=== PATIENT | female | born 1990 | race Caucasian/White ===

== ENCOUNTER → 2017-02-01 | Outpatient (CLI) | payer OTHER ==
[2017-02-01 08:24] LABS: MEAN CORPUSCULAR HEMOGLOBIN 29.2 pg (27.0-33.0); MEAN CORPUSCULAR VOLUME 88.7 fl (80.0-96.0); RED CELL DISTRIBUTION WIDTH 12.4 % (11.5-14.5); WHITE BLOOD COUNT 7.3 K/mm3 (4.0-10.0)
[2017-02-01 09:07] LABS: ALBUMIN 3.9 GM/DL (3.2-5.2); ALBUMIN/GLOBULIN RATIO 1.34 (1.00-1.93); ALKALINE PHOSPHATASE 104 U/L (45-117); ALT/SGPT 32 U/L (12-78); ANION GAP 5 MEQ/L (8-16); AST/SGOT 15 U/L (15-37); BILIRUBIN,TOTAL 0.5 MG/DL (0.2-1.0); BLOOD UREA NITROGEN 13 MG/DL (7-18); CALCIUM LEVEL 8.8 MG/DL (8.5-10.1); CARBON DIOXIDE LEVEL 29 MEQ/L (21-32); CHLORIDE LEVEL 105 MEQ/L (98-107); CHOLESTEROL LEVEL 226 MG/DL (<200); CREATININE FOR GFR 0.73 MG/DL (0.55-1.02); GLOMERULAR FILTRATION RATE > 60.0 (>60); GLUCOSE, FASTING 84 MG/DL (70-105); POTASSIUM SERUM 4.4 MEQ/L (3.5-5.1); SODIUM LEVEL 139 MEQ/L (136-145); TOTAL PROTEIN 6.8 GM/DL (6.4-8.2); TRIGLYCERIDES LEVEL 46 MG/DL (<150)
--- NOTE | 2017-02-01 09:38 | ECGEPIP ---
Stationary ECG Study [facility] Test Date: 2017-02-01 Pat Name: CANDIS MCELROY Department: Room: - Gender: F Senior Systems Software Engineer: : [id number] Requested By: Anahi Hernandez Order Number: [id number] Reading MD: Priscilla Cantu Measurements Intervals Parks Rate: 66 P: 20 CO: 156 QRS: 71 QRSD: 90 T: 67 QT: 418 QTc: 439 Interpretive Statements SINUS RHYTHM POSSIBLE SEPTAL T WAVE ABN NO PRIOR MAY BE NORMAL VARIENT Electronically Signed On 02-01-2017 9:38:12 EDT by Priscilla Cantu
== END ==
LOC: M LAB 08:03
PROVIDERS: ATTEND Family Medicine
DX: D64.9 Anemia, unspecified (principal); R53.83 Other fatigue

== ENCOUNTER → 2017-08-10 | Outpatient (CLI) | payer OTHER ==
[2017-08-10 17:45] LABS: BASO % 0.3 % (0.0-1.0); EOS # 0.2 10^3/uL (0.0-0.50); EOS % 1.2 % (0.0-3.0); HEMATOCRIT 35.6 % (36.0-47.0); HEMOGLOBIN 11.7 g/dl (12.0-16.0); IMMATURE GRANULOCYTE % 0.3 % (0-0); LYMPH # 3.4 10^3/uL (1.5-6.5); LYMPH % 26.7 % (24.0-44.0); MEAN CORPUSCULAR HEMOGLOBIN 29.4 pg (27.0-33.0); MEAN CORPUSCULAR HGB CONC 32.9 g/dl (32.0-36.5); MEAN CORPUSCULAR VOLUME 89.4 fl (80.0-96.0); MONO # 0.9 10^3/uL (0.0-0.8); MONO % 6.9 % (0.0-5.0); NEUTROPHILS # 8.3 10^3/uL (1.8-7.7); NEUTROPHILS % 64.6 % (36.0-66.0); PLATELET COUNT, AUTOMATED 285 10^3/uL (150-450); RED BLOOD COUNT 3.98 10^6/uL (4.00-5.40); RED CELL DISTRIBUTION WIDTH 12.9 % (11.5-14.5); WHITE BLOOD COUNT 12.9 10^3/uL (4.0-10.0)
[2017-08-10 23:17] LABS: CHLAMYDIA DNA AMPLIFICATION NEGATIVE (NEGATIVE); GC DNA AMPLIFICATION NEGATIVE (NEGATIVE)
[2017-08-12 10:34] LABS: RUBELLA IgG QUALITATIVE IMMUNE (IMMUNE)
[2017-08-12 10:52] LABS: HBsAg Prenatal NEGATIVE (NEGATIVE)
[2017-08-12 11:03] LABS: HIV 1&2 SCREEN CENTAUR NEGATIVE (NEGATIVE)
[2017-08-12 11:03] LABS: HEPATITIS C VIRUS ABY INDEX 0.1 INDEX (<0.8)
== END ==
LOC: M WUC 14:00
DX: Z34.81 Encounter for supervision of other normal pregnancy, first trimester (principal); Z3A.00 Weeks of gestation of pregnancy not specified
CPT/HCPCS: 86762

== ENCOUNTER → 2017-09-10 | Outpatient (CLI) | payer OTHER | LOC: M RAD 16:32 | DX: Z34.80 Encounter for supervision of other normal pregnancy, unspecified trimester (principal) ==

== ENCOUNTER → 2017-10-05 | Outpatient (CLI) | payer OTHER | LOC: M RAD 16:07 | DX: Z34.82 Encounter for supervision of other normal pregnancy, second trimester (principal); Z3A.23 23 weeks gestation of pregnancy | CPT/HCPCS: 76816 ==

== ENCOUNTER → 2017-11-06 | Outpatient (CLI) | payer OTHER ==
[2017-11-06 13:14] LABS: BASO % 0.2 % (0.0-1.0); EOS # 0.2 10^3/uL (0.0-0.50); EOS % 1.1 % (0.0-3.0); HEMOGLOBIN 11.4 g/dl (12.0-15.5); LYMPH # 1.8 10^3/uL (1.5-6.5); LYMPH % 11.1 % (24.0-44.0); MEAN CORPUSCULAR HEMOGLOBIN 29.3 pg (27.0-33.0); MEAN CORPUSCULAR HGB CONC 32.6 g/dl (32.0-36.5); MONO # 0.9 10^3/uL (0.0-0.8); MONO % 5.9 % (0.0-5.0); NEUTROPHILS # 12.9 10^3/uL (1.8-7.7); NEUTROPHILS % 80.7 % (36.0-66.0); PLATELET COUNT, AUTOMATED 306 10^3/uL (150-450); RED BLOOD COUNT 3.89 10^6/uL (4.00-5.40); RED CELL DISTRIBUTION WIDTH 13.2 % (11.5-14.5)
[2017-11-06 13:43] LABS: GLUCOSE CHALLENGE TEST 1 HOUR 78 MG/DL (LESS THAN 140)
== END ==
LOC: M SMT 08:02
DX: Z34.82 Encounter for supervision of other normal pregnancy, second trimester (principal)
CPT/HCPCS: 82950

== ENCOUNTER → 2018-01-06 | Outpatient (REF) | payer OTHER | LOC: M LAB REF 17:25 | DX: Z34.83 Encounter for supervision of other normal pregnancy, third trimester (principal); Z36.89 Encounter for other specified antenatal screening ==

== ENCOUNTER → 2018-01-11 | Outpatient (CLI) | payer OTHER | LOC: M RAD 16:04 | DX: O26.843 Uterine size-date discrepancy, third trimester (principal); Z3A.37 37 weeks gestation of pregnancy | CPT/HCPCS: 76816 ==

== ENCOUNTER 2018-02-04 21:18 | Inpatient (IN) | payer OTHER ==
[2018-02-04] MEDS ORDERED: OXYTOCIN DRIP 30 UNITS in APPROPRIATE DILUENT 1 EA IV (22:15)
[2018-02-04] MEDS: LR 1,000 ML IV ×2 (22:29)
[2018-02-04 22:31] LABS: HEMATOCRIT 32.8 % (36.0-47.0); HEMOGLOBIN 10.8 g/dl (12.0-15.5); MEAN CORPUSCULAR HEMOGLOBIN 26.7 pg (27.0-33.0); MEAN CORPUSCULAR HGB CONC 32.9 g/dl (32.0-36.5); PLATELET COUNT, AUTOMATED 309 10^3/uL (150-450); RED BLOOD COUNT 4.05 10^6/uL (4.00-5.40); RED CELL DISTRIBUTION WIDTH 13.8 % (11.5-14.5); WHITE BLOOD COUNT 13.2 10^3/uL (4.0-10.0)
[2018-02-04] MEDS: OMEPRAZOLE 20 MG CAP PO (22:50)
[2018-02-04] MEDS: CALCIUM CARBONATE 500 MG CHEW U/D PO (22:50)
[2018-02-05] MEDS ORDERED: FENTANYL 2MCG/ML ROPIVACAINE 0.2% IN 0.9% NACL 200ML IVBAG As Ordered (03:57)
[2018-02-05] MEDS ORDERED: ePHEDrine SULFATE 25 MG/5 ML(5MG/ML) SYRINGE IV (04:05)
[2018-02-05] MEDS ORDERED: EPIDURAL COMMENT XX (04:05)
[2018-02-05] MEDS ORDERED: FENTANYL/ROPIVACAINE/NACL BAG 200 ML EPIDURAL (04:05)
[2018-02-05] MEDS ORDERED: NALOXONE INJ 0.4 MG/1 ML VIAL (J2310) IV (04:05)
[2018-02-05] MEDS ORDERED: EPIDURAL/PCA KEYS XX (04:05)
[2018-02-05] MEDS ORDERED: REFRIGERATOR IV KEYS XX (04:05)
[2018-02-05] MEDS ORDERED: LACTATED RINGER'S 1000 ML IV (04:05)
[2018-02-05] MEDS ORDERED: ONDANSETRON 4MG/2ML VIAL (J2405) IV ×2 (04:05→11:15)
[2018-02-05] MEDS ORDERED: diphenhydrAMINE INJ 50MG/ML VIAL (J1200) IV (04:05)
[2018-02-05] MEDS ORDERED: ePHEDrine SULFATE 25 MG/5 ML(5MG/ML) SYRINGE As Ordered (05:11)
[2018-02-05] MEDS: LR 1,000 ML IV (08:49)
[2018-02-05] MEDS ORDERED: MEASLES,MUMPS,RUBELLA VACCINE INJ (MMR-II) (90707) SC (11:15)
[2018-02-05] MEDS: OXYTOCIN DRIP 30 UNITS in APPROPRIATE DILUENT 1 EA IV (11:15)
[2018-02-05] MEDS ORDERED: DIBUCAINE 1% OINTMENT 30GM TOP (11:15)
[2018-02-05] MEDS ORDERED: METHYLERGONOVINE MALEATE 0.2 MG TAB PO (11:15)
[2018-02-05] MEDS ORDERED: RHOGAM 300 MCG (1500 IU) INJ (J2790) IM (11:15)
[2018-02-05] MEDS ORDERED: DOCUSATE SODIUM 100 MG CAP PO (11:15)
[2018-02-05] MEDS: IBUPROFEN 800 MG TAB PO (15:05)
[2018-02-05] MEDS: ACETAMINOPHEN 500 MG TAB PO (21:16)
[2018-02-06] MEDS: PRENATAL VITAMINS CHEWABLE TABLET PO (08:55)
[2018-02-06] MEDS: ACETAMINOPHEN 500 MG TAB PO ×2 (08:55→19:44)
[2018-02-06] MEDS: IBUPROFEN 800 MG TAB PO (13:58)
[2018-02-07] MEDS: IBUPROFEN 800 MG TAB PO (05:29)
[2018-02-07] MEDS: PRENATAL VITAMINS CHEWABLE TABLET PO (08:14)
== END 2018-02-07 13:20 | disposition home or self-care (01) | DRG 775 ==
LOC: M LDO 21:18 → M LDI 21:54 → M OBS 02-05 14:18
PROVIDERS: Advanced Practice Midwife
PROC: 10E0XZZ Delivery of Products of Conception, External Approach (ICD-10-PCS; principal; 2018-02-05)
PROC: 0HQ9XZZ Repair Perineum Skin, External Approach (ICD-10-PCS; 2018-02-05)
DX: O42.02 Full-term premature rupture of membranes, onset of labor within 24 hours of rupture (principal); O48.0 Post-term pregnancy; Z3A.40 40 weeks gestation of pregnancy; O70.0 First degree perineal laceration during delivery; O77.0 Labor and delivery complicated by meconium in amniotic fluid; Z37.0 Single live birth

== ENCOUNTER 2018-11-24 19:24 | Emergency (ER) | payer OTHER ==
[~2018-11-24] VITALS: Ht 162.6 cm; Wt 76.8 kg
[~2018-11-24 19:24] MED LIST: ACET500T15 PO; ADVI200T PO; RANI15TA PO; TUMS500C PO
[2018-11-24] MEDS ORDERED: ACETAMINOPHEN TAB 650MG DOSE (2X325MG) PO ONE (20:30)
[2018-11-24 21:03] LABS: BASO # 0.1 10^3/uL (0.0-0.2); BASO % 0.5 % (0.0-1.0); EOS # 0.1 10^3/uL (0.0-0.50); EOS % 1.1 % (0.0-3.0); HEMATOCRIT 39.4 % (36.0-47.0); HEMOGLOBIN 12.7 g/dl (12.0-15.5); LYMPH # 3.9 10^3/uL (1.5-4.5); LYMPH % 34.6 % (24.0-44.0); MEAN CORPUSCULAR HEMOGLOBIN 28.4 pg (27.0-33.0); MEAN CORPUSCULAR HGB CONC 32.2 g/dl (32.0-36.5); MEAN CORPUSCULAR VOLUME 88.1 fl (80.0-96.0); MONO # 0.6 10^3/uL (0.0-0.8); MONO % 5.7 % (0.0-5.0); NEUTROPHILS # 6.5 10^3/uL (1.8-7.7); NEUTROPHILS % 57.7 % (36.0-66.0); PLATELET COUNT, AUTOMATED 266 10^3/uL (150-450); RED BLOOD COUNT 4.47 10^6/uL (4.00-5.40); WHITE BLOOD COUNT 11.2 10^3/uL (4.0-10.0)
--- NOTE | 2018-11-24 22:33 | REPVR ---
EXAM: US Pelvis Complete, Transabdominal EXAM DATE/TIME: 11/24/2018 9:38 PM CLINICAL HISTORY: 28 years old, female; Signs and symptoms; Lmp or gestational age (in weeks): Unk; Antepartum complications; Bleeding; ; Patient HX: Recent miscarriage; Additional info: Vaginal bleeding TECHNIQUE: Imaging protocol: Real-time transabdominal pelvic ultrasound with image documentation. Complete exam. COMPARISON: US OBS FOLL UP OR REPEAT EACH GES 01/11/2018 4:19 PM FINDINGS: Uterus/cervix: The uterus measures 10.4 x 5.4 x 6.0 cm and is anteverted. No intrauterine is visualized. The endometrium measures 1.4 cm in thickness without vascularity on color flow imaging. Right adnexa: The right ovary measures 4.6 x 2.0 x 3.2 cm and contains a 1.6 cm corpus luteal cyst. Left adnexa: The left ovary measures 2.6 x 1.7 x 2.5 cm. Free fluid: None. Bladder: Normal. IMPRESSION: No intrauterine or findings suspicious for retained products of conception. Electronically signed by: Ana M Reis On 11/24/2018 22:33:01 PM
[2018-11-24 23:10] LABS: CHLAMYDIA DNA AMPLIFICATION NEGATIVE (NEGATIVE); GC DNA AMPLIFICATION NEGATIVE (NEGATIVE)
[2018-11-24 23:30] VITALS: BP 112/65
== END 2018-11-24 23:31 | disposition home or self-care (01) ==
LOC: M ED 19:24
DX: O20.0 Threatened abortion (principal); Z79.899 Other long term (current) drug therapy

== ENCOUNTER → 2018-11-26 | Outpatient (CLI) | payer OTHER | LOC: M SMT 13:00 | PROVIDERS: ATTEND Specialist | DX: O02.1 Missed abortion (principal); Z3A.00 Weeks of gestation of pregnancy not specified ==

== ENCOUNTER → 2019-03-16 | Outpatient (CLI) | payer OTHER ==
[2019-03-16 14:48] LABS: BASO # 0.1 10^3/uL (0.0-0.2); BASO % 0.5 % (0.0-1.0); EOS # 0.1 10^3/uL (0.0-0.50); EOS % 0.8 % (0.0-3.0); HEMATOCRIT 40.1 % (36.0-47.0); LYMPH # 3.1 10^3/uL (1.5-4.5); MEAN CORPUSCULAR HEMOGLOBIN 29.2 pg (27.0-33.0); MEAN CORPUSCULAR HGB CONC 32.4 g/dl (32.0-36.5); MEAN CORPUSCULAR VOLUME 90.1 fl (80.0-96.0); MONO # 0.6 10^3/uL (0.0-0.8); MONO % 6.2 % (0.0-5.0); NEUTROPHILS # 5.9 10^3/uL (1.8-7.7); NEUTROPHILS % 60.2 % (36.0-66.0); PLATELET COUNT, AUTOMATED 278 10^3/uL (150-450); RED BLOOD COUNT 4.45 10^6/uL (4.00-5.40); WHITE BLOOD COUNT 9.8 10^3/uL (4.0-10.0)
[2019-03-16 16:00] LABS: HEPATITIS C VIRUS ABY INDEX < 0.0 INDEX (<0.8); HIV 1&2 SCREEN CENTAUR NEGATIVE (NEGATIVE); RUBELLA IgG QUALITATIVE IMMUNE (IMMUNE)
[2019-03-16 16:16] LABS: CHLAMYDIA DNA AMPLIFICATION NEGATIVE (NEGATIVE); GC DNA AMPLIFICATION NEGATIVE (NEGATIVE)
== END ==
LOC: M SMT 10:28
PROVIDERS: ATTEND Advanced Practice Midwife
DX: Z34.81 Encounter for supervision of other normal pregnancy, first trimester (principal)

== ENCOUNTER → 2019-05-19 | Outpatient (CLI) | payer OTHER ==
--- NOTE | 2019-05-20 14:14 | REP ---
Clinical: Anatomical evaluation. Comparison: 11/24/2018 . Findings: Examination demonstrates a single live intrauterine in breech presentation. motion is identified by technologist. Placenta is noted posterior and grade I without evidence for placenta previa or abruption. Amniotic fluid volume is normal. Cervix measures 5.7 cm in length and appears closed. No evidence for nuchal cord. Gestational age by LMP 18 weeks 6 days with JOSE EDUARDO 10/14/2019 . Gestational age by current measurements 19 weeks 0 days with JOSE EDUARDO 10/13/2019 . FHR equals 150 beats per minute. BPD 4.3 19 weeks 0 days HC 16.2 cm 19 weeks 0 days AC 13.6 cm 19 weeks 0 days FL 2.9 cm 18 weeks 6 days HL 2.8 cm 19 weeks 1 day HC/AC ratio 1.19 Estimated weight 266 grams (48th percentile). Anatomical assessment demonstrates normal structures including cranium, choroid plexus, cavum, cerebellum/posterior fossa, nose and lips, lungs, diaphragm, stomach, cord insertion/three-vessel cord, kidneys/bladder, spine, and extremities. Limited evaluation of the facial profile and heart/ventricular outflow tracts Impression: Single live intrauterine in breech presentation demonstrating appropriate interval growth. Anatomical limitations as noted above. No gross abnormality. Electronically Signed by Kenneth Tadeo MD 05/20/2019 02:07 P
== END ==
LOC: M RAD 16:58
PROVIDERS: ATTEND Obstetrics & Gynecology
DX: Z34.82 Encounter for supervision of other normal pregnancy, second trimester (principal)

== ENCOUNTER → 2019-06-22 | Outpatient (CLI) | payer OTHER ==
--- NOTE | 2019-06-22 07:46 | REP ---
Clinical: Anatomical evaluation. Comparison: 05/19/2019 . Findings: Examination demonstrates a single live intrauterine in variable presentation. motion is identified by technologist. Placenta is noted posterior and grade zero without evidence for placenta previa or abruption. Amniotic fluid volume is normal. Cervix measures 6.7 cm in length and appears closed. No evidence for nuchal cord. Gestational age by LMP 23 weeks 5 days with JOSE EDUARDO 10/14/2019 . Gestational age by current measurements 23 weeks 4 days with JOSE EDUARDO 10/15/2019 . FHR equals 135 beats per minute. Estimated weight 590 grams ( 35th percentile). Anatomical assessment demonstrates normal structures including cranium, choroid plexus, cavum, cerebellum/posterior fossa, facial features, lungs, four-chamber heart/ventricular outflow tracts, diaphragm, stomach, cord insertion/three-vessel cord, kidneys/bladder, spine, and lower extremities. Impression: Single live intrauterine in variable presentation demonstrating appropriate interval growth. In conjunction with prior examination anatomical assessment is complete and normal. No gross abnormalities are identified. Electronically Signed by Kenneth Tadeo MD 06/22/2019 07:38 A
== END ==
LOC: M RAD 06:15
PROVIDERS: ATTEND Obstetrics & Gynecology
DX: Z36.2 Encounter for other antenatal screening follow-up (principal); Z3A.23 23 weeks gestation of pregnancy

== ENCOUNTER → 2019-07-12 | Outpatient (CLI) | payer OTHER ==
[2019-07-12 13:45] LABS: HEMATOCRIT 37.3 % (36.0-47.0); HEMOGLOBIN 11.7 g/dl (12.0-15.5); MEAN CORPUSCULAR HEMOGLOBIN 29.3 pg (27.0-33.0); MEAN CORPUSCULAR HGB CONC 31.4 g/dl (32.0-36.5); MEAN CORPUSCULAR VOLUME 93.3 fl (80.0-96.0); PLATELET COUNT, AUTOMATED 253 10^3/uL (150-450); WHITE BLOOD COUNT 12.7 10^3/uL (4.0-10.0)
== END ==
LOC: M PLALAB 09:07
PROVIDERS: ATTEND Obstetrics & Gynecology
DX: Z34.82 Encounter for supervision of other normal pregnancy, second trimester (principal)

== ENCOUNTER → 2019-09-20 | Outpatient (REF) | payer OTHER | LOC: M SFHCWAGY 17:03 | PROVIDERS: ATTEND Advanced Practice Midwife | DX: Z34.83 Encounter for supervision of other normal pregnancy, third trimester (principal) ==

== ENCOUNTER 2019-10-15 15:07 | Outpatient (CLI) | payer OTHER ==
[~2019-10-15] VITALS: Ht 162.6 cm; Wt 95.4 kg
[2019-10-15 15:39] VITALS: BP 122/77
[2019-10-15] MEDS ORDERED: PRENTAB9 PO (16:24)
--- NOTE | 2019-10-15 20:32 | IPNPDOC ---
Text Note Date of Service The patient was seen on 10/15/19. NOTE Melita is a 29 year old at 40.1 EGA who presenting to the labor floor complaining of contractions and leaking of fluid that began at 2:00 PM (14:00) this afternoon. She said the leakage was clear, and she did not quite fill a pad. She reports good movement, no large gush of fluid. She says that her contractions started out about 6-8 minutes apart, and are now about 2-3 minutes apart. She does endorse not drinking a lot of fluid over the last day or so. On exam she is a pleasant, gravid female in no acute distress. Vital signs show a temperature of 97.3 F, pulse 87, respiratory rate 16, and blood pressure 122/77. Sterile vaginal exam shows nitrazine negative, no vaginal pooling. 3 cm dilated, 50% effaced -3 station. Monitor shows a heart rate of 120 bpm, moderate variability, accels, no decels. She was given fluids to drink and observed for 3 hours. Contractions spaced out to 8-10 minutes. There was no more leakage of fluid. She was determined to not be in labor, and discharged home. Signs and symptoms of labor were reviewed, precautions were given. The patient and her voiced understanding. VS,Fishbone, I+O VS, Fishbone, I+O Vital Signs Date Time Temp Pulse Resp B/P (MAP) Pulse Ox O2 Delivery O2 Flow Rate FiO2 10/15/19 15:39 97.3 87 16 122/77 (92) GME ATTESTATION GME ATTESTATION My faculty preceptor for this patient encounter was physically present during the encounter and was fully available. All aspects of the patient interview, examination, medical decision making process, and medical care plan development were reviewed and approved by the faculty preceptor. The faculty preceptor is aware and concurs with the plan as stated in the body of this note and will attest to such by his/her cosignature. JOAQUINA PAN D.O. Oct 15, 2019 20:32
== END 2019-10-15 20:35 | disposition home or self-care (01) ==
LOC: M LDO 15:07
PROVIDERS: ATTEND Obstetrics & Gynecology
DX: O26.893 Other specified pregnancy related conditions, third trimester (principal); N89.8 Other specified noninflammatory disorders of vagina; O47.1 False labor at or after 37 completed weeks of gestation; Z3A.40 40 weeks gestation of pregnancy
CPT/HCPCS: 59025; G0378; G0463

== ENCOUNTER 2019-10-18 02:33 | Inpatient (IN) | payer OTHER ==
[2019-10-18] VITALS (10 sets, daily range): BP systolic 121–139; BP diastolic 69–78
[~2019-10-18] VITALS: Ht 162.6 cm; Wt 94.7 kg
[~2019-10-18 02:33] MED LIST changes: +PRENTAB9 PO
[2019-10-18] MEDS ORDERED: LACTATED RINGER'S 1000 ML IV STA (03:00)
[2019-10-18] MEDS ORDERED: LR 1,000 ML IV SCH (03:00)
--- NOTE | 2019-10-18 03:05 | HPEPDOC ---
Obstetrical History & Physical General Date of Admission Oct 18, 2019 at 02:33 Primary Care Physician: ALFRED RODGERS CNM History of Present Illness Patient is a 29-year-old female who is a at 40.4 weeks gestation with an JOSE EDUARDO of 10/14/19 based off of her LMP and consistent with her first trimester ultrasound. She initiated care in her first trimester with [facility]. Her has been uncomplicated. She presents to L&D with complaints of regular painful contractions. She reports active movement. She reports some continuos vaginal discharge and is uncertain if her water is broke. She denies vaginal bleeding. Chief Complaint: Active Labor Information Provided By: Patient Age: 29 : 3 Term: 1 Pre-term: 0 Abortions: 1 Livin Care Care: Good Care Dating Final EDC: Oct 14, 2019 Final EDC by: LMP EGA at Admission: 40.4 Antepartum Course Pre- weight (lbs.): 154 Past Medical History Past Obstetrical History : Past Obstetrical History: Primgravida Gestation: 40.5 Type of Delivery: Spontaneous Vaginal Del. (January 2018) Sex of Infant: Female (weight 7 lbs 11 oz) Complications: No [employer] History: Spontaneous , Abnormal Pap Past Medical History Surgical History: Denies/None Family History Significant Family History: Diabetes Social History Marital Status: Family situation: Spouse/partner home Psychosocial History: No pertinent psych hx * Smoker: non-smoker Alcohol: Denies Drugs: denies Abuse Violence Screening Have you been hit/kicked/slapp: No Have you been sexually assault: No Allergies Coded Allergies: No Known Allergies (Unverified , 11/24/18) Medications Scheduled No.137/Iron/Folic Acd ( Vitamin Tablet) 1 Each Tablet, 1 TAB PO DAILY Physical Examination Physical Examination GENERAL: Alert and oriented times three. BREAST: . ABDOMEN: Gravid and non-tender to touch. FETUS: Is vertex (VTX) by sterile vaginal examination (SVE), fetus is vertex (VTX) by Kermit. HEART RATE: Regular rate and rhythm. LUNGS: Clear to auscultation (CTA). EXTREMITIES: Generalized edema. No clonus. Deep tendon reflexes (DTRs) + 2. Laboratory Data [facility] Laboratory Tests 2 10/18/19 02:42: Serology Scanned Report Hepatitis B Testing Urine Culture: No Growth Pertinent Laboratoy Data Blood Type: A+ RBC Antibody Screen: Negative HIV: Negative Hepatitis B: Negative Hepatitis C: Negative Rapid Plasma Reagin: Nonreactive Rubella: Immune Chlamydia/Gonorrhea: Negative Group B Streptococcus: Negative Vaginal Examination Dilation: 5 cm Effacement: 100% Station: -1 Presentation: Cephalic presentation Position: Vertex (occiput) Assessment Heart Rate (FHR): 130 Variability: Minimal to moderate Decelerations: None Tocometer Contractions: Yes Frequency: regular Assessment/Plan Assessment IUP at 40.4 weeks gestation active labor GBS negative Plan Admit to L&D OOB ad zion. Diet: clears. Group B Streptococcus (GBS) negative. Labs and intravenous (IV) per unit protocol. Anesthesia consult per patient's request. Lactated Ringers (LR): Bolus 800 mL, then at 125 mL/hr. Anticipate cervical change and . C-S as appropriate. ALFRED RODGERS CNM Oct 18, 2019 03:05
[2019-10-18 03:21] LABS: HEMOGLOBIN 13.5 g/dl (12.0-15.5); MEAN CORPUSCULAR HGB CONC 32.9 g/dl (32.0-36.5); MEAN CORPUSCULAR VOLUME 88.2 fl (80.0-96.0); PLATELET COUNT, AUTOMATED 251 10^3/uL (150-450); RED BLOOD COUNT 4.65 10^6/uL (4.00-5.40); WHITE BLOOD COUNT 13.6 10^3/uL (4.0-10.0)
[2019-10-18] MEDS ORDERED: TUMS500C PO (03:23)
[2019-10-18] MEDS ORDERED: FENTANYL 2MCG/ML ROPIVACAINE 0.2% IN 0.9% NACL 100ML IVBAG As Ordered ONE (03:43)
[2019-10-18] MEDS ORDERED: OXYTOCIN 30 UNITS IN 0.9% NaCl 500ML IV BAG (J2590) As Ordered ONE (04:35)
[2019-10-18] MEDS ORDERED: OXYTOCIN DRIP 30 UNITS in IV 1 EA IV SCH (05:05)
[2019-10-18] MEDS ORDERED: DIBUCAINE 1% OINTMENT 30GM TOP PRN (05:15)
[2019-10-18] MEDS ORDERED: LIDOCAINE 1% MDV 20ML VIAL INFIL ONE (05:15)
[2019-10-18] MEDS ORDERED: DOCUSATE SODIUM 100 MG CAP PO PRN (05:15)
[2019-10-18] MEDS ORDERED: MEASLES,MUMPS,RUBELLA VACCINE INJ (MMR-II) (90707) SC SCH (05:15)
[2019-10-18] MEDS ORDERED: RHOGAM 300 MCG (1500 IU) INJ (J2790) IM SCH (05:15)
[2019-10-18] MEDS ORDERED: ACETAMINOPHEN TAB 650MG DOSE (2X325MG) PO PRN (05:15)
[2019-10-18] MEDS ORDERED: ANUSOL HC CREAM 30GM TOP PRN (05:15)
[2019-10-18] MEDS ORDERED: METHYLERGONOVINE MALEATE 0.2 MG TAB PO PRN (05:15)
[2019-10-18] MEDS ORDERED: IBUPROFEN 600 MG TAB PO PRN (05:15)
--- NOTE | 2019-10-18 05:17 | DNPDOC ---
[facility] Delivery Note Delivery Note DATE OF DELIVERY: 10/18/2019 at 0432 PREDELIVERY DIAGNOSIS: 40-4/7 weeks' gestation and labor. POST DELIVERY DIAGNOSIS: Delivered. PROCEDURE: Spontaneous vaginal delivery. JUVENILE CORRECTIONS OFFICER: Alfred Moffett CNM, [facility] ANESTHESIA: none. ESTIMATED BLOOD LOSS: 150 mL. FINDINGS: 8 pounds 4 ounces; 3750 grams; female , Score 8/9, meconium, precipitous delivery. DELIVERY SUMMARY: Patient is a 29-year-old female who is now a who pr esented to L&d in active labor. She progressed to fully dilated at 0428 and AROM was performed to a scant amount of fluid. She pushed to a living female in the OA position with restitution to LOT. The anterior shoulder delivered with ease and the corpus immediately followed. Thick meconium was noted and staining the newborns skin, placenta, and cord. The baby was placed on the maternal abdomen [id number] active and crying with stimulation. The cord was clamped after 1 minute and cut by the FOB. A 3-vessel cord was noted. The placenta delivered spontaneously and intact at 0438. Uterine hemostasis was achieved via rapid infusion of IV Pitocin and fundal massage. The vagina, cervix, and perineum was inspected and found to have a first degree perineal laceration that was repaired with a 3.[address]-1. They are naming their baby Steven. Both mom and baby are in stable condition. All counts of instruments and sponges are correct. ALFRED MOFFETT CNM Oct 18, 2019 05:17
[2019-10-18] MEDS: IBUPROFEN 800 MG TAB PO PRN ×3 (05:31→23:06)
[2019-10-18] MEDS: PRENATAL VITAMINS CHEWABLE TABLET PO SCH (08:38)
[2019-10-18] MEDS: ACETAMINOPHEN 500 MG TAB PO PRN ×2 (08:38→18:47)
[2019-10-19 06:00] VITALS: BP_SYST 127; BP_SYST 134; BP_DIAS 70; BP_DIAS 72
[2019-10-19] MEDS: IBUPROFEN 800 MG TAB PO PRN (06:27)
[2019-10-19] MEDS: PRENATAL VITAMINS CHEWABLE TABLET PO SCH (08:03)
== END 2019-10-19 11:00 | disposition home or self-care (01) | DRG 807 ==
LOC: M LDI 02:33 → M OBS 07:01
PROVIDERS: ADMIT Advanced Practice Midwife; ATTEND Advanced Practice Midwife
PROC: 10E0XZZ Delivery of Products of Conception, External Approach (ICD-10-PCS; principal; 2019-10-18)
PROC: 10907ZC Drainage of Amniotic Fluid, Therapeutic from Products of Conception, Via Natural or Artificial Opening (ICD-10-PCS; 2019-10-18)
PROC: 0HQ9XZZ Repair Perineum Skin, External Approach (ICD-10-PCS; 2019-10-18)
DX: O48.0 Post-term pregnancy (principal); Z37.0 Single live birth; Z3A.40 40 weeks gestation of pregnancy; O62.3 Precipitate labor; O77.0 Labor and delivery complicated by meconium in amniotic fluid; O70.0 First degree perineal laceration during delivery

== ENCOUNTER → 2020-02-03 | Outpatient (REF) | payer OTHER | LOC: M LAB REF 18:01 | PROVIDERS: ATTEND Dermatology | DX: D23.5 Other benign neoplasm of skin of trunk (principal) ==

== ENCOUNTER → 2020-11-23 | Outpatient (REF) | payer OTHER | LOC: M SFHCWAGY 09:54 | PROVIDERS: ATTEND Advanced Practice Midwife | DX: Z01.419 Encounter for gynecological examination (general) (routine) without abnormal findings (principal); Z12.4 Encounter for screening for malignant neoplasm of cervix ==

== ENCOUNTER → 2023-03-12 | Outpatient (CLI) | payer OTHER ==
[2023-03-12 14:26] LABS: BASO % 0.5 % (0.0-1.0); EOS # 0.1 10^3/uL (0.0-0.5); EOS % 1.2 % (0.0-3.0); HEMATOCRIT 42.7 % (36.0-47.0); HEMOGLOBIN 13.5 g/dl (12.0-15.5); LYMPH % 35.9 % (24.0-44.0); MEAN CORPUSCULAR HEMOGLOBIN 28.8 pg (27.0-33.0); MEAN CORPUSCULAR HGB CONC 31.6 g/dl (32.0-36.5); MONO # 0.7 10^3/uL (0.0-0.8); MONO % 7.7 % (2.0-8.0); NEUTROPHILS # 4.6 10^3/uL (1.5-8.5); NEUTROPHILS % 54.2 % (36.0-66.0); PLATELET COUNT, AUTOMATED 283 10^3/uL (150-450); RED BLOOD COUNT 4.69 10^6/uL (4.00-5.40); WHITE BLOOD COUNT 8.4 10^3/uL (4.0-10.0)
[2023-03-12 14:54] LABS: FREE T3 3.3 PG/ML (2.3-4.2); TOTAL 25(OH) VITAMIN D 26.7 NG/ML (20.0-100.0)
[2023-03-12 14:56] LABS: FREE T4 1.09 NG/DL (0.89-1.76)
[2023-03-12 14:57] LABS: ALKALINE PHOSPHATASE 139 U/L (46-116); ALT/SGPT 81 U/L (7.0-40); AST/SGOT 25 U/L (<34); BILIRUBIN,TOTAL 0.4 MG/DL (0.3-1.2); BLOOD UREA NITROGEN 10 MG/DL (9-23); CALCIUM LEVEL 9.3 MG/DL (8.5-10.1); CARBON DIOXIDE LEVEL 30 MMOL/L (20-31); CHLORIDE LEVEL 105 MMOL/L (98-107); CREATININE FOR GFR 0.73 MG/DL (0.55-1.30); FERRITIN 28.7 NG/ML (7.3-270.7); GLOMERULAR FILTRATION RATE > 60.0 (>60); GLUCOSE, FASTING 78 MG/DL (60-100); IRON (FE) 125 UG/DL (50-170); PERCENT SATURATION 31.1 % (13.2-45.0); POTASSIUM SERUM 4.6 MMOL/L (3.5-5.1); SODIUM LEVEL 140 MMOL/L (136-145); TOTAL IRON BINDING CAPACITY 402 UG/DL (250-425); TOTAL PROTEIN 6.9 G/DL (5.7-8.2)
[2023-03-12 14:58] LABS: THYROID STIMULATING HORMONE 2.131 uIU/ML (0.55-4.78)
[2023-03-12 15:05] LABS: THYROID PEROXIDASE ANTIBODY > 1300.0 U/ML (<60.0)
== END ==
LOC: M PLALAB 10:53
PROVIDERS: ATTEND Nurse Practitioner Family
DX: R53.83 Other fatigue (principal)

== ENCOUNTER → 2023-06-10 | Outpatient (CLI) | payer OTHER ==
[2023-06-10 19:05] LABS: ALBUMIN 3.8 G/DL (3.2-5.2); ALKALINE PHOSPHATASE 140 U/L (46-116); ALT/SGPT 142 U/L (7.0-40); AST/SGOT 55 U/L (<34); BILIRUBIN,DIRECT < 0.1 MG/DL (<0.4); BILIRUBIN,TOTAL 0.3 MG/DL (0.3-1.2); BLOOD UREA NITROGEN 15 MG/DL (9-23); CALCIUM LEVEL 8.8 MG/DL (8.5-10.1); CARBON DIOXIDE LEVEL 30 MMOL/L (20-31); CHLORIDE LEVEL 104 MMOL/L (98-107); CREATININE FOR GFR 0.73 MG/DL (0.55-1.30); GLOMERULAR FILTRATION RATE > 60.0 (>60); GLUCOSE, FASTING 82 MG/DL (60-100); POTASSIUM SERUM 4.4 MMOL/L (3.5-5.1); SODIUM LEVEL 141 MMOL/L (136-145); TOTAL PROTEIN 6.7 G/DL (5.7-8.2)
[2023-06-10 19:07] LABS: HEPATITIS B SURFACE ANTIBODY POSITIVE (POSITIVE)
[2023-06-10 19:39] LABS: HEPATITIS C VIRUS ABY INDEX 0.04 INDEX (<0.8)
== END ==
LOC: M PLALAB 15:55
PROVIDERS: ATTEND Nurse Practitioner Family
DX: R74.01 Elevation of levels of liver transaminase levels (principal)

== ENCOUNTER → 2025-02-09 | Outpatient (REF) | payer OTHER ==
[2025-02-12 04:23] LABS: HPV APTIMA Not Detected (Not Detected)
== END ==
LOC: M SFHCWAGY 15:30
PROVIDERS: ATTEND Advanced Practice Midwife
DX: Z12.4 Encounter for screening for malignant neoplasm of cervix (principal)
CPT/HCPCS: 87624; G0123

== ENCOUNTER → 2025-03-20 | Outpatient (CLI) | payer OTHER ==
[2025-03-20 10:24] LABS: BASO # 0.1 10^3/uL (0.0-0.2); BASO % 0.6 % (0.0-1.0); EOS # 0.1 10^3/uL (0.0-0.5); EOS % 1.6 % (0.0-3.0); LYMPH # 3.5 10^3/uL (1.5-5.0); LYMPH % 40.2 % (24.0-44.0); MONO # 0.7 10^3/uL (0.0-0.8); MONO % 7.9 % (2.0-8.0); NEUTROPHILS # 4.3 10^3/uL (1.5-8.5); NEUTROPHILS % 49.5 % (36.0-66.0); PLATELET COUNT, AUTOMATED 258 10^3/uL (150-450)
[2025-03-20 10:50] LABS: ALT/SGPT 26 U/L (7.0-40); AST/SGOT 19 U/L (<34); CALCIUM LEVEL 9.4 MG/DL (8.5-10.1); CARBON DIOXIDE LEVEL 31 MMOL/L (20-31); CHLORIDE LEVEL 103 MMOL/L (98-107); CHOLESTEROL LEVEL 239 MG/DL (<200); CHOLESTEROL RISK RATIO 3.64 (<5); CREATININE FOR GFR 0.81 MG/DL (0.55-1.30); GLOMERULAR FILTRATION RATE > 90.0 (>60); LDL CHOLESTEROL 163.7 MG/DL (<100); NON-HDL-C 173.5 MG/DL; POTASSIUM SERUM 4.5 MMOL/L (3.5-5.1); SODIUM LEVEL 142 MMOL/L (136-145); TRIGLYCERIDES LEVEL 49 MG/DL (<150)
[2025-03-20 10:51] LABS: FREE T4 1.15 NG/DL (0.89-1.76); TOTAL 25(OH) VITAMIN D 28.1 NG/ML (20.0-100.0)
== END ==
LOC: M PLALAB 07:34
PROVIDERS: ATTEND Nurse Practitioner Family
DX: E55.9 Vitamin D deficiency, unspecified (principal); R74.01 Elevation of levels of liver transaminase levels; R94.6 Abnormal results of thyroid function studies